=== PATIENT | female | born 1935 | race Caucasian/White ===

== ENCOUNTER 2020-10-09 08:03 | Outpatient (CLI) | payer MEDICARE, BC, SELFPAY ==
--- NOTE | 2020-10-09 08:00 | USCV_ITS ---
[place] Age: 85 Gender: F : 1935 Exam Date: 10/09/2020 08:27 Ordering Phys: Renialdo Cabrera MD ([email or web address]) Technologist: TERE Exam Location: [facility] – [place] Indication: CHEST PAIN BP: / HR: 72 Rhythm: Sinus Technical Quality: Adequate MEASUREMENTS (Male / Female) Normal Values 2D ECHO LV Diastolic Diameter PLAX 2.9 cm 4.2 - 5.9 / 3.9 - 5.3 cm LV Systolic Diameter PLAX 2.6 cm LV Chamber Size 2.7 cm IVS Diastolic Thickness 0.8 cm 0.6 - 1.0 / 0.6 - 0.9 cm IVS Systolic Thickness 1.0 cm LVPW Diastolic Thickness 2.0 cm 0.6 - 1.0 / 0.6 - 0.9 cm LVPW Systolic Thickness 2.2 cm RV Chamber Size 3.2 cm LVOT Diameter 2.0 cm LV Ejection Fraction 2D Teich 20.4 % LV Ejection Fraction MOD 2C 65.5 % LV Ejection Fraction 2C AL 67.1 % LA Diameter 2.0 cm LA Width 3.0 cm LA Height 4.0 cm RA Width 3.6 cm RA Height 3.7 cm Aorta at Sinotubular Diameter 2.5 cm M-MODE LV Diastolic Diameter MM 3.8 cm 4.2 - 5.9 / 3.9 - 5.3 cm LV Systolic Diameter MM 2.6 cm LV Ejection Fraction MM Teich 60.7 % IVS Diastolic Thickness MM 1.0 cm 0.6 - 1.0 / 0.6 - 0.9 cm IVS Systolic Thickness MM 0.9 cm LVPW Diastolic Thickness MM 0.9 cm 0.6 - 1.0 / 0.6 - 0.9 cm LVPW Systolic Thickness MM 1.2 cm Aortic Annulus Diameter 3.2 cm LA Ao Ratio MM 0.7 MV E Point Septal Separation 0.8 cm DOPPLER AV Peak Velocity 136.3 cm/s LVOT Peak Velocity 109.7 cm/s AV Area Cont Eq vti 2.6 cm squared AV Area Cont Eq pk 2.5 cm squared MV Area PHT 4.2 cm squared Mitral E to A Ratio 0.7 MV E' Velocity 41.5 cm/s Mitral E to MV E' Ratio 9.7 Mitral E to LV E' Lateral Ratio 12.6 Mitral E to LV E' Septal Ratio 7.9 TR Peak Velocity 247.1 cm/s TR Peak Gradient 24.4 mmHg TR Mean Velocity 175.4 cm/s TR Mean Gradient 14.9 mmHg TR Velocity Time Integral 89.2 cm TV Peak E Velocity 63.0 cm/s Right Atrial Pressure 3.0 mmHg Pulmonary Artery Systolic Pressu 27.4 mmHg PV Peak Velocity 65.0 cm/s RV Acceleration Time 0.1 s RV Ejection Time 0.4 s RV AcT/ET 0.3 FINDINGS Left Ventricle Normal left ventricular size and systolic function, EF 61 %. No regional wall motion abnormalities. Right Ventricle The right ventricle is normal in size and function. Right Atrium Mildly increased right atrial size. Left Atrium The left atrium is normal in size. Mitral Valve Mild mitral valve regurgitation. Aortic Valve No gross abnormalities noted Tricuspid Valve Thickened tricuspid valve. Moderate tricuspid valve regurgitation. Pulmonic Valve No gross abnormalities noted Pericardium No pericardial effusion. Aorta Normal ascending aorta dimension. CONCLUSIONS Normal left ventricular size and systolic function, EF 61 %. No regional wall motion abnormalities. Mild mitral valve regurgitation. Thickened tricuspid valve. Moderate tricuspid valve regurgitation. There is no pericardial effusion. There are no intracardiac masses. No previous study is available for comparison. Dr Reinaldo Cabrera MD [facility] (Electronically Signed) Final Date: 09 October 2020 17:33 S
== END 2020-10-09 08:04 | disposition home or self-care (01) ==
LOC: RAD 08:09
PROVIDERS: PCP Family Medicine; Visit Provider Internal Medicine Cardiovascular Disease
DX: R07.9 Chest pain, unspecified (principal); I48.0 Paroxysmal atrial fibrillation; I08.1 Rheumatic disorders of both mitral and tricuspid valves
CPT/HCPCS: 93306

== ENCOUNTER 2021-06-21 14:44 | Outpatient (CLI) | payer MEDICARE, BC, SELFPAY ==
--- NOTE | 2021-06-21 15:00 | USCV_ITS ---
Dieterich [place] Age: 86 Gender: F : 1935 Exam Date: 06/21/2021 15:11 Ordering Phys: Reinaldo Cabrera MD ([email or web address]) Technologist: JUDE Exam Location: [facility] – [place] Indication: DISORDER OF ARTERIES Risk Factors: Previous Vascular Surgery: Right Brachial BP: / Left Brachial BP: / Right Left Velocity (cm/s) Spectral Plaque Velocity (cm/s) Spectral Plaque Syst/Diast Broadening Syst/Diast Broadening 51.60/ 11.55 Prox CCA 63.90 / 14.30 53.40/ 11.45 Mid CCA 59.50 / 9.90 56.50/ 14.25 Hetro Distal CCA 53.90 / 10.10 Hetro 52.00/ 14.80 Hetro Prox ICA 110.30/ 37.50 Hetro 76.90/ 22.50 Mid ICA 108.10/ 33.10 83.10/ 27.20 Distal ICA 108.10/ 32.00 197.35 ECA 259.40 1.11 ICA/CCA 1.72 Antegrade Vertebral Antegrade 52.00/ 17.10 cm/s 51.60/ 12.15 cm/s Tri Subclavian Tri 126.8 70.30 0 FINDINGS Comparison: none available. Diffuse bilateral scattered calcified plaque and intimal thickening throughout the common carotid arteries and extending through the bifurcation. No significant elevation of systolic or diastolic velocities. Antegrade vertebral arteries. CONCLUSIONS Bilateral ICA stenosis less than 50%. Mild carotid atherosclerosis. Dr. Carrie Mckeon DO (Electronically Signed) Final Date: 21 June 2021 16:13 S
== END 2021-06-21 14:45 | disposition home or self-care (01) ==
LOC: RAD 14:50
PROVIDERS: PCP Family Medicine; Visit Provider Internal Medicine Cardiovascular Disease
DX: I77.9 Disorder of arteries and arterioles, unspecified (principal); R09.89 Other specified symptoms and signs involving the circulatory and respiratory systems
CPT/HCPCS: 93880

== ENCOUNTER → 2022-05-06 10:02 | Outpatient (BNVA) | payer MEDICARE, SELFPAY | PROVIDERS: PCP Family Medicine; Visit Provider Internal Medicine Cardiovascular Disease | DX: R00.1 Bradycardia, unspecified (principal); R55 Syncope and collapse; E03.9 Hypothyroidism, unspecified; I48.0 Paroxysmal atrial fibrillation; E78.5 Hyperlipidemia, unspecified | CPT/HCPCS: 99214 ==

== ENCOUNTER → 2022-07-28 11:09 | Outpatient (BNVA) | payer MEDICARE, SELFPAY | PROVIDERS: PCP Family Medicine; Visit Provider Internal Medicine Cardiovascular Disease | DX: I48.0 Paroxysmal atrial fibrillation (principal); I10 Essential (primary) hypertension; E03.9 Hypothyroidism, unspecified; E78.5 Hyperlipidemia, unspecified; F17.200 Nicotine dependence, unspecified, uncomplicated; Z79.01 Long term (current) use of anticoagulants | CPT/HCPCS: 99214 ==